=== PATIENT | female | born 1960 | race Caucasian/White ===

== ENCOUNTER 2018-08-01 13:31 | Emergency (ER) | payer SELFPAY ==
[~2018-08-01] VITALS: Ht 154.9 cm; Wt 78.6 kg
[2018-08-01 13:36] VITALS: TEMP 99
[2018-08-01 14:29] LABS: BASO # 0.1 (0.0-0.2); BASO % 0.4 % (0.0-2.0); EOS % 0.1 % (0-4.0); GRAN # 9.6 (1.4-6.5); GRAN % 71.3 % (42.2-75.2); HEMATOCRIT 44.4 % (37.0-47.0); HEMOGLOBIN 14.8 g/dl (12.5-16.0); LYMPH # 1.8 (1.2-3.4); LYMPH % 13.4 % (20.0-51.0); MEAN CELL VOLUME 90 fl (80.0-100.0); MEAN CORPUSCULAR HEMOGLOBIN 30 pg (27.0-31.0); MEAN CORPUSCULAR HGB CONC 33 g/dl (33.0-37.0); MEAN PLATELET VOLUME 9.8 fl (7.4-10.4); MONO # 1.9 (0.1-0.6); MONO % 14.2 % (1.7-9.3); PLATELET COUNT 271 K/mm3 (130-400); RED BLOOD COUNT 4.93 M/mm3 (4.10-5.30); REDCELL DISTRIBUTION WIDTH-CV 13.3 % (11.5-14.5)
[2018-08-01] MEDS ORDERED: CLEOCIN HCL300 MG PO (14:40)
[2018-08-01] MEDS ORDERED: NORCO 325 MG-51 TAB PO (14:40)
[2018-08-01 14:44] LABS: ALBUMIN 4.7 gm/dL (3.5-5.0); BILIRUBIN,TOTAL 1.2 mg/dL (0.0-1.0); CALCIUM 9.5 mg/dL (8.4-10.2); CREATININE, serum 0.78 mg/dL (0.52-1.25); POTASSIUM 3.9 mmol/L (3.4-5.0); TOTAL PROTEIN 8.7 gm/dL (6.4-8.2)
[2018-08-01 14:55] LABS: C-REACTIVE PROTEIN 14.9 mg/dL (0.0-0.9)
[2018-08-01 16:06] VITALS: BP 130/90; PULSE 73
== END 2018-08-01 16:08 | disposition home or self-care (01) ==
LOC: COL.ER 13:31
PROVIDERS: Physician Assistant
DX: K12.2 Cellulitis and abscess of mouth (principal); Z90.710 Acquired absence of both cervix and uterus
CPT/HCPCS: Q9967

== ENCOUNTER 2018-10-27 21:45 | Observation (INO) | payer SELFPAY ==
[~2018-10-27] VITALS: Ht 157.5 cm; Wt 86.6 kg
[~2018-10-27 21:45] MED LIST: CLEOCIN HCL300 MG PO; NORCO 325 MG-51 TAB PO
[2018-10-28 00:15] LABS: BASO # 0.1 (0.0-0.2); BASO % 0.3 % (0.0-2.0); EOS % 0.2 % (0-4.0); GRAN # 14.9 (1.4-6.5); GRAN % 83.4 % (42.2-75.2); HEMATOCRIT 39.4 % (37.0-47.0); LYMPH # 1.2 (1.2-3.4); LYMPH % 6.5 % (20.0-51.0); MEAN CELL VOLUME 92 fl (80.0-100.0); MEAN CORPUSCULAR HEMOGLOBIN 30 pg (27.0-31.0); MEAN CORPUSCULAR HGB CONC 33 g/dl (33.0-37.0); MEAN PLATELET VOLUME 10.2 fl (7.4-10.4); MONO # 1.6 (0.1-0.6); PLATELET COUNT 272 K/mm3 (130-400); RED BLOOD COUNT 4.29 M/mm3 (4.10-5.30)
[2018-10-28 00:26] LABS: INR 0.9 (0.8-3.0); PROTHROMBIN TIME 10.6 SECONDS (9.7-12.8)
[2018-10-28 00:28] LABS: ALBUMIN 4.4 gm/dL (3.5-5.0); BILIRUBIN,TOTAL 0.6 mg/dL (0.0-1.0); CALCIUM 8.9 mg/dL (8.4-10.2); CREATININE, serum 0.82 mg/dL (0.52-1.25); POTASSIUM 4.2 mmol/L (3.4-5.0); TOTAL PROTEIN 7.6 gm/dL (6.4-8.2)
[2018-10-28 00:29] LABS: PARTIAL THROMBOPLASTIN TIME 26.9 SECONDS (26.0-37.0)
--- NOTE | 2018-10-28 00:40 | NUR ---
Patient arrived to the unit via stretcher. Able to self transfer to icu bed. Reports pain to right side with movement but denies pain when still.
[2018-10-28 00:53] VITALS: BP 149/79; PULSE 80; TEMP 98.1
[2018-10-28 01:29] LABS: BASO % 0.2 % (0.0-2.0); EOS % 0.1 % (0-4.0); GRAN # 14.3 (1.4-6.5); GRAN % 85.2 % (42.2-75.2); HEMATOCRIT 39.7 % (37.0-47.0); HEMOGLOBIN 13.1 g/dl (12.5-16.0); LYMPH # 0.9 (1.2-3.4); LYMPH % 5.2 % (20.0-51.0); MEAN CELL VOLUME 92 fl (80.0-100.0); MEAN CORPUSCULAR HEMOGLOBIN 31 pg (27.0-31.0); MEAN CORPUSCULAR HGB CONC 33 g/dl (33.0-37.0); MEAN PLATELET VOLUME 9.7 fl (7.4-10.4); MONO # 1.5 (0.1-0.6); MONO % 8.8 % (1.7-9.3); PLATELET COUNT 254 K/mm3 (130-400); REDCELL DISTRIBUTION WIDTH-CV 13.9 % (11.5-14.5)
[2018-10-28 01:38] LABS: ALBUMIN 4.3 gm/dL (3.5-5.0); BILIRUBIN,TOTAL 0.4 mg/dL (0.0-1.0); CREATININE, serum 0.85 mg/dL (0.52-1.25); POTASSIUM 4.3 mmol/L (3.4-5.0); TOTAL PROTEIN 7.4 gm/dL (6.4-8.2)
--- NOTE | 2018-10-28 03:00 | NUR ---
Patient resting in bed with eyes shut. No concerns at this time.
[2018-10-28 04:00] VITALS: BP 131/55; PULSE 62; TEMP 97.8
[2018-10-28 05:36] LABS: BASO % 0.2 % (0.0-2.0); EOS % 0.1 % (0-4.0); GRAN # 10.2 (1.4-6.5); GRAN % 78.7 % (42.2-75.2); HEMATOCRIT 38.9 % (37.0-47.0); HEMOGLOBIN 12.5 g/dl (12.5-16.0); LYMPH # 1.2 (1.2-3.4); MEAN CELL VOLUME 94 fl (80.0-100.0); MEAN CORPUSCULAR HEMOGLOBIN 30 pg (27.0-31.0); MEAN CORPUSCULAR HGB CONC 32 g/dl (33.0-37.0); MEAN PLATELET VOLUME 9.9 fl (7.4-10.4); MONO # 1.5 (0.1-0.6); MONO % 11.5 % (1.7-9.3); PLATELET COUNT 242 K/mm3 (130-400); RED BLOOD COUNT 4.15 M/mm3 (4.10-5.30)
[2018-10-28 05:53] LABS: CALCIUM 8.8 mg/dL (8.4-10.2); CREATININE, serum 0.83 mg/dL (0.52-1.25); POTASSIUM 4.7 mmol/L (3.4-5.0)
--- NOTE | 2018-10-28 05:55 | NUR ---
Patient reporting right rib pain which is worse and becomes sharp with movement. PRN morphine administered.
[2018-10-28 08:00] VITALS: BP 133/54; PULSE 70; TEMP 98.1
--- NOTE | 2018-10-28 08:00 | NUR ---
Pt sleeping soundly and awoken with minor stimulation. Pt alert and oriented, in waiting room. Pt is hard of hearing without hearing aids. Call light within reach
--- NOTE | 2018-10-28 08:49 | NUR ---
Pt's and close family friend at bedside, they have already been udated on pt status. Pt awake and conversing appropriately with visitors. Pt denies need for available pain medication.
--- NOTE | 2018-10-28 11:14 | NUR ---
Pati Encinas returned page for consultation. Updated on pt recent history. Elliot COLBY will be in to see pt - per Pati Encinas
[2018-10-28 12:00] VITALS: BP 142/83; PULSE 78; TEMP 98
--- NOTE | 2018-10-28 12:17 | NUR ---
Telephone report given to LOU Soliman. PT weaned down to room air - no use of accessory respiratory muscles used. RLL fine crackles remain.
--- NOTE | 2018-10-28 12:50 | NUR ---
Pt arrived to room 349 via w/c from ICU, escorted by LOU Felix. Pt is awake and A/Ox4. Pt is very [place] and does not have hearing aides here. Pt states pain is tolerable right now. IVF are infusing into left hand without difficulty, site is free of complications. Pt is up to chair with SBA. Pt was oriented to room and to staff, expressed understanding. at bedside, denies any needs. Lunch ordered for pt.
--- NOTE | 2018-10-28 14:46 | NUR ---
Pt sitting up in recliner. Sling applied to right arm per ortho's order. Pt requested PRN pain medication for 7-8/10 pain to her right chest. PRN percocet given.
[2018-10-28 16:33] VITALS: BP 135/67; PULSE 68; TEMP 98.8
--- NOTE | 2018-10-28 17:59 | NUR ---
Pt continues to sit in recliner, eating supper that family brought to her. Pt states her pain is tolerable and denies need for pain medication at this time. Encouraged pt to continue to deep breath. Denies any other needs.
[2018-10-28 20:00] VITALS: BP 146/62; PULSE 88; TEMP 99.3
[2018-10-28 21:08] LABS: COLLECTION METHOD CLEAN CATCH
[2018-10-28 21:13] LABS: PH 7 (5-8); SQUAMOUS EPITHELIAL 0-2 /hpf; URINE APPEARANCE Clear; URINE BACTERIA None Seen /hpf; URINE BILIRUBIN Negative (NEGATIVE); URINE BLOOD 1+ (NEGATIVE); URINE COLOR Yellow; URINE GLUCOSE Negative (NEGATIVE); URINE KETONE Negative (NEGATIVE); URINE LEUKOCYTE ESTERASE Negative (NEGATIVE); URINE NITRATE Negative (NEGATIVE); URINE PROTEIN(semi-quant) Negative (NEGATIVE); URINE UROBILINOGEN Negative (NEGATIVE)
--- NOTE | 2018-10-28 22:00 | NUR ---
PT IN RECLINER. IN ROOM. PT VOIDING. NO c/o N/V. LIDODERM PATCH REMOVED, PT ADMIN. 2 PERCOCET FOR RIGHT SIDE RIB/BACK PAIN. SLING ON RUE. NO DYSPNEA AT REST. NO AUDIBLE WHEEZES OR CRACKLES. RIGHT LUNG BASE DIMINISHED.
[2018-10-29 04:00] VITALS: BP 126/52; PULSE 68; TEMP 98.9
[2018-10-29 06:00] LABS: BASO % 0.4 % (0.0-2.0); EOS # 0.1 (0.0-0.7); EOS % 0.7 % (0-4.0); GRAN # 4.9 (1.4-6.5); GRAN % 67.3 % (42.2-75.2); HEMATOCRIT 37.5 % (37.0-47.0); HEMOGLOBIN 12.3 g/dl (12.5-16.0); LYMPH # 1.1 (1.2-3.4); LYMPH % 15.8 % (20.0-51.0); MEAN CELL VOLUME 93 fl (80.0-100.0); MEAN CORPUSCULAR HEMOGLOBIN 31 pg (27.0-31.0); MEAN CORPUSCULAR HGB CONC 33 g/dl (33.0-37.0); MONO # 1.1 (0.1-0.6); MONO % 15.5 % (1.7-9.3); PLATELET COUNT 217 K/mm3 (130-400); RED BLOOD COUNT 4.02 M/mm3 (4.10-5.30); REDCELL DISTRIBUTION WIDTH-CV 14.3 % (11.5-14.5)
[2018-10-29 06:11] LABS: CALCIUM 8.7 mg/dL (8.4-10.2); CREATININE, serum 0.68 mg/dL (0.52-1.25); POTASSIUM 4.5 mmol/L (3.4-5.0)
--- NOTE | 2018-10-29 06:23 | NUR ---
PT RESTING QUIETLY. NO DYSPNEA. 1 PERCOCET ADMIN. FOR PAIN THIS MORNING.
[2018-10-29 07:44] VITALS: BP 123/58; PULSE 74; TEMP 98.3
--- NOTE | 2018-10-29 08:36 | NUR ---
Pt alert and oriented, out of bed to chair. at bedside. 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 Pt denied a vist from social worker psychiatric or scale shooter.
--- NOTE | 2018-10-29 11:58 | NUR ---
First visit from the sales representatives. No needs right now.
[2018-10-29 12:22] VITALS: BP 143/61; PULSE 84; TEMP 98.2
[2018-10-29] MEDS ORDERED: Lidocaine 4% Patch TP (13:31)
[2018-10-29] MEDS ORDERED: PERCOCET 325 MG1 TA2 PO (13:31)
== END 2018-10-29 16:31 | disposition home or self-care (01) ==
LOC: COL.ER 21:45 → ICU 10-28 00:24 → SURG 10-28 00:24
PROVIDERS: Emergency Medicine; Physician Assistant; ADMIT Surgery
DX: S22.31XA Fracture of one rib, right side, initial encounter for closed fracture (principal); S42.101A Fracture of unspecified part of scapula, right shoulder, initial encounter for closed fracture; W11.XXXA Fall on and from ladder, initial encounter
CPT/HCPCS: A9284; J1170; J2270; J7030; J7120